=== PATIENT | male | born 1955 | race Caucasian/White ===

== ENCOUNTER 2017-01-12 10:24 | Emergency (ER) | payer OTHER ==
[2017-01-12 11:58] LABS: HEMOGLOBIN 18.2 gm/dl (14.0-17.5); RED BLOOD COUNT 5.78 M/UL (4.20-5.50); WHITE BLOOD COUNT 6.6 K/UL (4.5-11.0)
[2017-01-12 12:18] LABS: BUN/CREATININE RATIO 20 (0-10)
== END 2017-01-12 14:50 | disposition home or self-care (01) ==
LOC: ER1 10:24
PROVIDERS: Physician Assistant
DX: J44.9 Chronic obstructive pulmonary disease, unspecified (principal); E87.1 Hypo-osmolality and hyponatremia; E11.9 Type 2 diabetes mellitus without complications; G89.29 Other chronic pain; M54.5 Low back pain; F17.200 Nicotine dependence, unspecified, uncomplicated; I10 Essential (primary) hypertension; Z88.1 Allergy status to other antibiotic agents
CPT/HCPCS: 36415; 36600; 71020; 80053; 82803; 82962; 85025; 94640; 94664; 96374; 96375; 99285; J1885; J2930

== ENCOUNTER → 2017-01-13 | Outpatient (CLI) | payer OTHER ==
[2017-01-13 13:32] LABS: BUN/CREATININE RATIO 21 (0-10)
== END ==
LOC: LAB 11:54
PROVIDERS: Physician Assistant
DX: E87.1 Hypo-osmolality and hyponatremia (principal)
CPT/HCPCS: 36415; 80048